=== PATIENT | female | born 1935 | race Caucasian/White ===

== ENCOUNTER 2022-09-10 11:15 | Outpatient (RCR) | payer OTHER, SELFPAY | END 2022-11-24 11:46 | disposition home or self-care (01) | PROVIDERS: PCP Family Medicine; Visit Provider Family Medicine | DX: M25.572 Pain in left ankle and joints of left foot (principal); Z51.89 Encounter for other specified aftercare | CPT/HCPCS: 97035; 97110; 97140; 97161; 97535 ==